=== PATIENT | female | born 1955 | race Caucasian/White ===

== ENCOUNTER 2022-10-08 23:46 | Emergency (ER) | payer MEDICARE, MEDICAID ==
[~2022-10-08] VITALS: Ht 170.2 cm; Wt 61.7 kg
[2022-10-09] MEDS ORDERED: predniSONE 50 MG TABLET ONE (01:00)
[2022-10-09] MEDS ORDERED: diphenhydrAMINE 50 MG/1 ML VIAL IM ONE (01:00)
[2022-10-09] MEDS ORDERED: predniSONE 20 MG TABLET PO ONE (01:00)
[2022-10-09] MEDS ORDERED: EPINEPHRINE-PF 1:1000 1 MG/ML AMPUL SQ ONE (01:00)
[2022-10-09] MEDS ORDERED: diphenhydrAMINE 50 MG/1 ML VIAL ONE (01:00)
[2022-10-09] MEDS ORDERED: predniSONE 10 MG TABLET ONE (01:01)
[2022-10-09] MEDS ORDERED: EPINEPHRINE 1 MG/1 ML AMP ONE (01:01)
[2022-10-09] MEDS ORDERED: PRED20TA PO (01:39)
[2022-10-09] MEDS ORDERED: DIPH25TA25 PO (01:39)
[2022-10-09 01:58] VITALS: BP 94/56; TEMP 98; O2SAT 99
== END 2022-10-09 01:50 | disposition home or self-care (01) ==
LOC: ER 10-09 00:14
DX: T78.40XA Allergy, unspecified, initial encounter (principal); R42 Dizziness and giddiness; I48.91 Unspecified atrial fibrillation; Z88.1 Allergy status to other antibiotic agents; Z88.2 Allergy status to sulfonamides; Z88.8 Allergy status to other drugs, medicaments and biological substances; Z79.899 Other long term (current) drug therapy; Y92.89 Other specified places as the place of occurrence of the external cause
CPT/HCPCS: 93005; A4663; J0171; J1200; J7512